=== PATIENT | female | born 1960 | race Caucasian/White ===

== ENCOUNTER → 2021-09-26 | Outpatient (CLI) | payer MEDICARE, OTHER ==
[~2021-09-26] MED LIST: CLONAZEPAM1 MG PO; ENDOCET 5-3251 EACH PO; IBU800 MG PO
[2021-09-26 11:44] LABS: HEMOGLOBIN 14.1 gm/dl (12.3-15.3); RED BLOOD COUNT 4.79 M/UL (4.00-5.10); WHITE BLOOD COUNT 4.8 K/UL (4.5-11.0)
== END ==
LOC: OPSV2 10:30
PROVIDERS: Obstetrics & Gynecology
DX: Z01.812 Encounter for preprocedural laboratory examination (principal); N81.9 Female genital prolapse, unspecified
CPT/HCPCS: 36415; 81001; 85025

== ENCOUNTER 2021-10-08 09:08 | Day surgery (SDC) | payer MEDICARE, OTHER ==
[~2021-10-08] VITALS: Ht 154.9 cm; Wt 57.6 kg
[2021-10-08] MEDS ORDERED: HYDROCODONE-AC1 EACH PO (15:15)
[2021-10-08] MEDS ORDERED: DOCUSATE SODIU250 MG PO (15:15)
[2021-10-08] MEDS ORDERED: IBUPROFEN600 MG PO (15:15)
[2021-10-09 08:01] LABS: HEMOGLOBIN 12.2 gm/dl (12.3-15.3)
== END 2021-10-09 11:45 | disposition home or self-care (01) ==
LOC: OR 09:08 → EDSTATUS 10:30 → OR 10:30 → M/S 19:29 → OR 10-09 11:45
PROVIDERS: Obstetrics & Gynecology
DX: N80.0 Endometriosis of uterus (principal); N87.9 Dysplasia of cervix uteri, unspecified; N81.10 Cystocele, unspecified; N72 Inflammatory disease of cervix uteri; N39.46 Mixed incontinence; N94.10 Unspecified dyspareunia; R39.14 Feeling of incomplete bladder emptying; R94.31 Abnormal electrocardiogram [ECG] [EKG]; Z79.899 Other long term (current) drug therapy; Z98.51 Tubal ligation status; Z20.822 Contact with and (suspected) exposure to COVID-19
CPT/HCPCS: 36415; 71045; 85014; 85018; 93005; C1769; J0690; J1100; J1170; J2001; J2270; J2405; J2704; J2710; J3010; J7050; J7120